=== PATIENT | male | born 1990 | race Caucasian/White ===

== ENCOUNTER 2021-01-06 22:53 | Emergency (ER) | payer OTHER, SELFPAY ==
[2021-01-06 22:54] VITALS: BP 148/102; PULSE 102; RESP 16; TEMP 36; O2SAT 98; BMI 26.8
--- NOTE | 2021-01-06 23:14 | RAD_ITS ---
STUDY: X-RAY CHEST REASON FOR EXAM: Male, 30 years old. chest pain TECHNIQUE: Single AP portable view of the chest. COMPARISON: None. FINDINGS: The lungs are normally expanded with subtle density in the left lung base, cannot exclude mild/early pneumonitis. Remainder of the lung plata are clear. There is no demonstrated pleural abnormality. Normal size heart. Normal mediastinum and liana. Normal visualized pulmonary arteries. Normal visualized aortic arch and descending thoracic aorta. Normal visualized thoracic spine. Normal visualized ribs, clavicles, and shoulders. There is no demonstrated abnormality of the visualized soft tissue structures of the upper abdomen. RAD/Chest 1 View (Portable) IMPRESSION: Possible small focus of left basilar pneumonitis, clinical correlation recommended. Otherwise normal chest x-ray. Electronically Signed: Ashley Daigle MD at 0:13 EDT , Service support ,
--- NOTE | 2021-01-06 23:14 | EDS_ITS ---
HPI History of Present Illness Chief Complaint: Chest Pain Informant: patient Narrative Narrative: 38-year-old male presents the emergency room with a chief complaint of chest pain. Patient states that tonight he got home from work around 2000 hours he was attempting to take a memory foam mattress out of its box. He states that he developed the pain in the left side of his chest that seem to go into his left arm to make his left arm numb and then it became tingling. He states he laid down better. He got up and continued working and the symptoms returned. He states that his noticed that he was short of breath. He states he is never had this before. Nothing seems to make it better or worse. He denies any known medical issues PFSH PFS Medical History no medical history no medical history Home Medications NK 01/06/21 [History Last Taken Unknown] Allergy/AdvReac Type Severity Reaction Status Date / Time No Known Allergies Allergy Verified 01/06/21 22:56 Social History (Updated 01/06/21 @ 23:[address] Anselmo Mesa, DO) current gender identity: male other: Lives with family Smoking Status: Never smoker ROS ROS ED Constitutional Constitutional ED: Denies chills, fever(s) or weight loss Eyes Eyes: Denies change in vision or diplopia ENT ENT ED: Denies ear pain, rhinorrhea or sore throat Cardiovascular Cardiovascular: Reports chest pain; Denies orthopnea, palpitations or racing heartbeat Respiratory/Chest Respiratory/Chest: Reports dyspnea; Denies cough or orthopnea Gastrointestinal Gastrointestinal: Denies abdominal pain, diarrhea, nausea or vomiting Genitourinary Genitourinary ED: Denies dysuria, hematuria or urinary frequency Musculoskeletal Musculoskeletal: Denies arthralgias or myalgias Integumentary Denies abscess or rash Neurologic Neurologic: Reports paresthesias; Denies headache(s) or weakness Psychiatric Psychiatric: Denies anxiety, depression, suicidal ideation or suicidal thoughts Endocrine Endocrinology: Denies polydipsia, polyphagia or polyuria Allergic/Immunologic Allergic/Immunologic ED: Denies mouth swelling, tongue swelling or urticaria EXAM Physical Exam Const Vital Signs: 01/06/21 22:54 Temperature 96.8 F L Temperature Source Temporal Pulse Rate 102 H Respiratory Rate 16 Blood Pressure 148/102 H Blood Pressure Mean 117 Pulse Ox 98 Oxygen Delivery Method Room Air Positive well nourished and well developed General Appearance ED: well developed HEENT Reports normocephalic, head/scalp atraumatic, TM's clear and moist mucous membranes normocephalic and atraumatic Tympanic Membrane ED: Yes TM's clear Eyes PERRL and EOMs intact bilaterally Neck no lymphadenopathy, supple and no JVD Chest Wall inspection of chest normal Resp normal respiratory effort and clear to auscultation bilaterally Cardio regular rate, regular rhythm and no murmurs GI normal to inspection, nondistended, normoactive bowel sounds and non-tender Palpation: soft Back/Spine no CVA tenderness and normal ROM Extremity normal to inspection General Extremety ED: Negative for edema General Extremity: Negative for edema Neuro oriented x3 and CN's II-XII intact bilaterally Sensorium / Orientation: alert Motor Exam: strength 5/5 throughout Psych mental status grossly normal Mood & Affect: Negative for depressed or tearful Skin no rashes or lesions noted and no wounds Heart Score History: Slightly/Non-Suspicious ECG: Normal Age: </= 45 years Risk Factors: No Risk Factors Troponin: </= Normal Limit Score: 0 MDM MDM MDM Narrative Medical decision making narrative: My interpretation of the chest x-ray is no acute process. CBC BMP troponin D-dimer negative. I do not suspect that the patient has ACS, PE, dissection or other chest emergency. Patient clinically appears well. I will be discharging him home following up with primary care if not improving Lab Data Attestation: I reviewed the patient's lab results. Labs: Laboratory Results - last 24 hr 01/06/21 01/06/21 01/06/21 23:05 23:05 23:50 WBC 8.1 RBC 5.19 Hgb 14.9 Hct 44.6 MCV 85.9 MCH 28.7 MCHC 33.4 RDW Std Deviation 38.2 RDW Coeff of Janette 12.1 Plt Count 263 MPV 9.9 Immature Gran % (Auto) 0.200 Neut % (Auto) 57.2 Lymph % (Auto) 34.0 [place] % (Auto) 7.5 Eos % (Auto) 0.6 Baso % (Auto) 0.5 Absolute Neuts (auto) 4.6 Absolute Lymphs (auto) 2.75 Nucleated RBC % 0 D-Dimer Quant (PE/DVT) <= 0.27 Sodium 136 Potassium 3.8 Chloride 103 Carbon Dioxide 27.0 Anion Gap 6 BUN 11 Creatinine 1.14 Estim Creat Clear Calc 103.05 Est GFR (MDRD) Af Amer 96 Est GFR (MDRD) Non-Af 79 BUN/Creatinine Ratio 9.6 L Glucose 94 Calcium 9.3 Troponin I High Sens 4 Radiography Diagnostic Testing: Clinical Impression(s) from Imaging Studies Chest X-Ray 01/06/21 23:14 IMPRESSION: Possible small focus of left basilar pneumonitis, clinical correlation recommended. Otherwise normal chest x-ray. Electronically Signed: Ashley Daigle MD at 0:13 EDT , Service support , EKG Initial EKG: Attestation: I personally reviewed and interpreted this EKG as follows: Comments: Normal sinus rhythm with a ventricular rate of 90 bpm. Discharge Plan Triage Chief Complaint: Chest Pain ED Provider: Anselmo Mesa Dx/Rx/DC Orders Clinical Impression: Chest pain Instructions: ED Chest Pain, Uncertain Cause Prescriptions: No Action NK RF: 0 Primary Care Provider: Moises Henriquez Referrals: Moises Henriquez MD [Primary Care Provider] - 3-5 Days if not improving Disposition Disposition: Home, Self Care
--- NOTE | 2021-01-06 23:14 | EKG12_ITS ---
Test Reason : CP Blood Pressure : / mmHG Vent. Rate : 090 BPM Atrial Rate : 090 BPM P-R Int : 120 ms QRS Dur : 092 ms QT Int : 346 ms P-R-T Axes : 035 -07 029 degrees QTc Int : 423 ms Normal sinus rhythm Normal ECG Confirmed by FÉLIX REILLY, RANDY ([id number]), technical writer and editor SONIDO JAUREGUI ([id number]) on 01/08/2021 8:44:56 AM Referred By: Confirmed By:RANDY HEARD MD
[2021-01-06 23:42] LABS: Absolute Lymphocyte Count 2.75 X10^3/uL (0.83-4.51); Absolute Neutrophil Count 4.6 X10^3/uL (2.0-7.7); Basophil# 0.04 X10^3/uL; Basophil% 0.5 % (0-1); Eosinophil# 0.05 X10^3/uL; Eosinophils% 0.6 % (0-5); Hematocrit 44.6 % (40-54); Hemoglobin 14.9 g/dL (13.0-16.5); Lymphocyte # 2.75 X10^3/ul (0.83-4.51); Mean Corp Hgb Conc 33.4 g/dL (32-36); Mean Corpuscular Hgb 28.7 pg (27.0-32.0); Mean Corpuscular Volume 85.9 fL (80-94); Mean Platelet Vol. 9.9 fl (6.2-12.0); Monocyte# 0.61 X10^3/uL; Monocyte% 7.5 % (0-10); NRBC Flagged by Analyzer 0 % (0-5); Neutrophil # 4.63 X10^3/uL (2.7-7.7); Neutrophil % 57.2 % (47-70); Platelet Count 263 K/mm3 (150-450); RBC Distribution Width CV 12.1 % (11.6-14.6); RBC Distribution Width SD 38.2 fl (35.1-43.9); Red Blood Count 5.19 M/mm3 (4.6-6.2); White Blood Count 8.1 K/mm3 (4.4-11.0)
[2021-01-06] MEDS: Aspirin 81 MG TAB.CHEW 324 MG PO (23:43)
[2021-01-06 23:56] LABS: Anion Gap 6 (5-15); BUN 11 mg/dL (7-18); BUN/Creat Ratio 9.6 RATIO (10-20); Calcium,Total 9.3 mg/dL (8.5-10.1); Chloride 103 mmol/L (98-107); Creatinine, Serum 1.14 mg/dL (0.70-1.30); EST Glomerular Filtration Rate 79 mL/min (>60); Est Glom Filt Rate - Afr Amer 96 mL/min (>60); Estimated Creatinine Clearance 103.05 ml/min; Glucose 94 mg/dL (74-106); Potassium 3.8 mmol/L (3.5-5.1); Sodium Level 136 mmol/L (136-145); Troponin-I HS 4 pg/mL (3.0-78.0)
[2021-01-07 00:11] LABS: D-Dimer Quantitative (DVT/PE) <= 0.27 FEU/ug/m (0.27-0.49)
[2021-01-07 00:37] VITALS: BP 152/89; PULSE 81; RESP 16
== END 2021-01-07 00:40 | disposition home or self-care (01) ==
PROVIDERS: Emergency Provider Emergency Medicine; PCP Family Medicine
DX: R07.9 Chest pain, unspecified (principal); M79.602 Pain in left arm; R06.02 Shortness of breath; R20.2 Paresthesia of skin
CPT/HCPCS: 71045; 80048; 84484; 85025; 85379; 93005; 99284; A4216